=== PATIENT | female | born 1945 | race Caucasian/White ===

== ENCOUNTER 2018-05-11 08:05 | Outpatient (CLI) | payer BC, MEDICARE ==
--- NOTE | 2018-05-11 09:28 | BD ---
DEXA BONE DENSITY STUDY: HISTORY: Postmenopausal. LUMBAR SPINE BMD (g/cm2) T-SCORE L1 1.075 +0.8 L2 1.200 +1.6 L3 1.303 +2.0 L4 1.302 +2.2 TOTAL 1.224 +1.6 LEFT FEMORAL NECK 0.786 -0.6 TOTAL 0.952 +0.1 IMPRESSION: Normal bone mineral density of the lumbar spine and left femoral neck. POS: [facility]
== END 2018-05-11 08:06 | disposition home or self-care (01) ==
LOC: BICMAMMO 08:05
PROVIDERS: ATTEND General Practice
DX: Z13.820 Encounter for screening for osteoporosis (principal); Z91.89 Other specified personal risk factors, not elsewhere classified
CPT/HCPCS: 77080